=== PATIENT | female | born 1955 | race Two or more races ===

== ENCOUNTER 2017-04-26 11:07 | Emergency (ER) | payer BC, OTHER ==
[2017-04-26 11:20] VITALS: BP 126/79; PULSE 64; TEMP 98.1; BMI 25.0
[2017-04-26] MEDS ORDERED: ALBUTEROL SO4 2.5/IPRATROPIUM 0.5 INH SOL 3 ML VIAL.NEB. NEB STA (11:39)
[2017-04-26] MEDS ORDERED: predniSONE 20 MG TABLET (UD) PO ONE (11:39)
[2017-04-26] MEDS ORDERED: ALBUTEROL SO4 2.5/IPRATROPIUM 0.5 INH SOL 3 ML VIAL.NEB. NEB ONE ×3 (11:40→12:46)
[2017-04-26] MEDS ORDERED: predniSONE 20 MG TABLET (UD) ONE ×2 (11:40→12:12)
--- NOTE | 2017-04-26 11:43 | PDOC ---
History of Present Illness - General Chief Complaint: Respiratory Stated Complaint: DIFFICULTY BREATHING Time Seen by Provider: 04/26/17 11:30 History Source: Patient Exam Limitations: No Limitations - History of Present Illness Initial Comments: 04/26/17 11:37 61 yr female with 3 weeks cough ,, improved after taking Zpack finished thursday. Pt states she still has some cough and feels short of breath. no chest pain no fever or body aches. no swelling . no foreign travel. Pt was exposed to influenza last week taking care of her grandson. Severity: reports: moderate Possible Cause: Yes: illness exposure Modifying Factors: improves with: activity Past History - Past Medical History Allergies/Adverse Reactions: Allergies Allergy/AdvReac Type Severity Reaction Status Date / Time chicken derived Allergy Intermediate Itching Verified 02/19/12 13:07 [Chicken Derived] egg [Egg] Allergy Intermediate Itching Verified 04/26/17 11:20 pineapple [Pineapple] Allergy Intermediate Itching Verified 04/26/17 11:20 No Known Drug Allergies Allergy Verified 04/26/17 11:20 Home Medications: Ambulatory Orders Acetaminophen [Tylenol] 500 mg PO PRN PRN 04/26/17 Albuterol Sulfate Inhaler - [Ventolin HFA Inhaler -] 1 - 2 inh PO Q4H #1 inhaler 04/26/17 Prednisone [Deltasone] 40 mg PO DAILY #10 tablet 04/26/17 Anemia: No Asthma: No Cancer: No Cardiac Disorders: No CVA: No COPD: No CHF: No Dementia: No Diabetes: No GI Disorders: Yes (acid reflux) Disorders: No HTN: No Hypercholesterolemia: No Liver Disease: No Seizures: No Thyroid Disease: No - Immunization History Td Vaccination: No TDAP Vaccination: No Immunization Up to Date: No - Suicide/Smoking/Psychosocial Hx Smoking Status: No Smoking History: Never smoked Have you smoked in the past 12 months: No Number of Cigarettes Smoked Daily: 0 Hx Alcohol Use: No Drug/Substance Use Hx: No Respiratory Specific PMHX - Complaint Specific PMHX Angina: No Bronchitis: No Pneumonia: No Pulmonary Embolus: No TB (Tuberculosis): No Review of Systems - Review of Systems Able to Perform ROS?: Yes Is the patient limited Malagasy proficient: No Constitutional: No: Symptoms Reported Respiratory: Yes: Cough, Shortness of Breath, Wheezing, Productive cough Cardiac (ROS): No: Chest Pain, Edema, Irregular Heart Rate, Chest Tightness ABD/GI: No: Symptoms Reported : No: Symptoms Reported Musculoskeletal: No: Symptoms Reported Integumentary: No: Symptoms Reported Neurological: No: Symptoms reported *Physical Exam - Vital Signs Last Vital Signs Temp Pulse Resp BP Pulse Ox 98.1 F 64 18 126/79 98 04/26/17 11:17 04/26/17 11:17 04/26/17 11:17 04/26/17 11:17 04/26/17 11:17 - Physical Exam General Appearance: Yes: Nourished, Appropriately Dressed HEENT: positive: EOMI, CHACORTA, Normal ENT Inspection, TMs Normal, Pharynx Normal Neck: positive: Supple. negative: Tender Respiratory/Chest: positive: Rhonchi, Wheezing. negative: Chest Tender Cardiovascular: positive: Regular Rhythm, Regular Rate Gastrointestinal/Abdominal: positive: Normal Bowel Sounds, Soft Musculoskeletal: positive: Normal Inspection Extremity: positive: Normal Capillary Refill, Normal Inspection, Normal Range of Motion Integumentary: positive: Normal Color, Dry, Warm Neurologic: positive: air conditioning manager II-XII NML intact, Fully Oriented, Alert, Normal Mood/ Affect, Normal Response, Motor Strength 5/5 Heart Score/ECG Review - ECG Impressions Normal ECG: Yes ED Treatment Course - LABORATORY CBC & Chemistry Diagram: 04/26/17 12:55 04/26/17 12:55 Medical Decision Making - Medical Decision Making 04/26/17 11:42 cc: cough shortness of breath completed 5 days of azithromycin states the cough has improved but pt continues to feel SOB and wheezing no fever no abd pain no chest pain will r/o pneumonia will give duoneb and prednisone. check labs and re-evaluate 04/26/17 13:31 pt feels some improvement with the duonebs 04/26/17 14:20 pt improved after 3 nebs and prednisone pt resting comfortably no wheezing now on discharge no SOB pt dc home with her all questions asked and answered at discharge. *DC/Admit/Observation/Transfer Diagnosis at time of Disposition: Bronchitis - Discharge Dispostion Disposition: HOME Condition at time of disposition: Improved - Prescriptions Prescriptions: Albuterol Sulfate Inhaler - [Ventolin HFA Inhaler -] 1 - 2 inh PO Q4H #1 inhaler Prednisone [Deltasone] 40 mg PO DAILY #10 tablet - Referrals - Patient Instructions Additional Instructions: please follow with your doctor tomorrow, this is very important that you have a follow up in 24hrs get pleanty of rest and drink pleanty of water to stay hydrated start the prednisone tomorrow morning use the inhaler every 4hrs return to ER for any worsening symptoms, chest pain fever chills or any other concerns otherwise see your doctor tomorrow for follow up exam - Post Discharge Activity
[2017-04-26 13:10] LABS: BASO % 0.5 % (0-2.0); EOS % 0.9 % (0-4.5); HEMATOCRIT 40.2 % (32.4-45.2); HEMOGLOBIN 13.1 GM/dL (10.7-15.3); LYMPH % 34.5 % (8-40); MCHC 32.6 g/dl (32.0-36.0); MEAN CELL VOLUME 82.8 fl (80-96); MEAN PLT VOLUME 8.3 fl (7.5-11.1); MONO % 5.1 % (3.8-10.2); PLATELET COUNT 187 K/MM3 (134-434); RBC 4.85 M/mm3 (3.60-5.2); RDW 13.6 % (11.6-15.6); WHITE BLOOD COUNT 5.8 K/mm3 (4.0-10.0)
[2017-04-26 13:29] LABS: CALCIUM 8.6 mg/dL (8.5-10.1); CHLORIDE 109 mmol/L (98-107); POTASSIUM 3.5 mmol/L (3.5-5.1); SODIUM 140 mmol/L (136-145)
[2017-04-26 13:30] LABS: ALBUMIN 3.8 g/dl (3.4-5.0); ANION GAP 6 (8-16); BLOOD UREA NITROGEN 7 mg/dL (7-18); CO2 25 mmol/L (21-32); GLUCOSE,RANDOM 125 mg/dL (74-106)
[2017-04-26 13:35] LABS: BILIRUBIN,TOTAL 0.4 mg/dL (0.2-1.0); CREATININE 0.5 mg/dL (0.55-1.02); SGOT/AST 13 U/L (15-37); SGPT/ALT 27 U/L (12-78); TOT PROT 8.3 g/dl (6.4-8.2)
[2017-04-26 13:38] LABS: ALK PHOS 94 U/L (45-117)
--- NOTE | 2017-04-26 16:51 | EKG ---
Test Reason : Blood Pressure : / mmHG Vent. Rate : 072 BPM Atrial Rate : 072 BPM P-R Int : 154 ms QRS Dur : 096 ms QT Int : 376 ms P-R-T Axes : 041 028 021 degrees QTc Int : 411 ms NORMAL SINUS RHYTHM RSR' OR QR PATTERN IN V1 SUGGESTS RIGHT VENTRICULAR CONDUCTION DELAY BORDERLINE ECG NO PREVIOUS ECGS AVAILABLE Confirmed by GAYLE BEE MD ([id number]) on 04/26/2017 4:51:22 PM Referred By: Confirmed By:GAYLE BEE MD
== END 2017-04-26 14:23 | disposition home or self-care (01) ==
LOC: JER 11:07
PROC: 3E0F7GC Introduction of Other Therapeutic Substance into Respiratory Tract, Via Natural or Artificial Opening (ICD-10-PCS; principal; 2017-04-26)
PROC: 3E0F7GC Introduction of Other Therapeutic Substance into Respiratory Tract, Via Natural or Artificial Opening (ICD-10-PCS; 2017-04-26)
DX: J40 Bronchitis, not specified as acute or chronic (principal)
CPT/HCPCS: 36415; 71046-TC-FY; 80053; 82550; 84484; 85025; 93005; 93010; 99284-25